=== PATIENT | male | born 1970 | race Caucasian/White ===

== ENCOUNTER 2022-09-16 16:49 | Emergency (ER) | payer OTHER ==
[2022-09-16] MEDS ORDERED: Ondansetron 4 MG/2 ML SDV IVPUSH ONE (17:08)
[2022-09-16] MEDS ORDERED: HYDROmorphone 1 MG/ML Syringe IVPUSH ONE ×2 (17:08→20:50)
[2022-09-16] MEDS ORDERED: ceFAZolin 1 GM in Sodium Chloride 0.9% 50 ML IV ONE (17:09)
[2022-09-16] MEDS ORDERED: Diphtheria,Pertussis(Acell),Tetanus Vaccine 0.5 ML Syringe IM ONE (17:09)
[2022-09-16] MEDS ORDERED: Lidocaine 1% 5 ML VIAL INJECT ONE (17:11)
[2022-09-16] MEDS ORDERED: Sodium Chloride 0.9% 1,000 ML IV ONE (17:23)
[2022-09-16 17:30] LABS: BASOPHILS PERCENT AUTO 0.2 % (0.0-1.5); EOSINOPHILS ABSOLUTE AUTO 0.1 K/uL (0.0-0.7); EOSINOPHILS PERCENT AUTO 1.2 % (0.0-7.0); HEMATOCRIT 42.6 % (38.0-50.0); HEMOGLOBIN 15.2 g/dL (13.0-17.0); LYMPHOCYTES ABSOLUTE AUTO 4.3 K/uL (0.6-2.4); LYMPHOCYTES PERCENT AUTO 45.3 % (16.0-40.0); MEAN CORPUSCULAR HEMOGLOBIN 30.2 pg (27.0-32.0); MEAN CORPUSCULAR HGB CONC 35.7 g/dL (31.0-37.0); MEAN CORPUSCULAR VOLUME 84.7 fL (80.0-98.0); MONOCYTES ABSOLUTE AUTO 0.8 K/uL (0.0-0.8); MONOCYTES PERCENT AUTO 8.8 % (0.0-15.0); NEUTROPHILS ABSOLUTE AUTO 4.3 K/uL (1.4-5.7); NEUTROPHILS PERCENT AUTO 44.5 % (48.0-80.0); PLATELET COUNT,PLT 330 K/uL (150-400); RED BLOOD CELL COUNT 5.03 M/uL (4.50-5.90); WHITE BLOOD CELL COUNT,WBC 9.55 K/uL (4.0-11.0)
[2022-09-16 17:54] LABS: A/G RATIO 1.3 (0.9-1.6); ALBUMIN 3.9 g/dL (3.4-5.0); BILIRUBIN TOTAL 0.9 mg/dL (0.2-1.0); CALCIUM 9.1 mg/dL (8.5-10.1); CARBON DIOXIDE,CO2 23.3 mmol/L (21.0-32.0); CREATININE 1.1 mg/dL (0.8-1.3); EST CRCL DRUG DOSING (CG) 91.8 mL/min; POTASSIUM,K 3.7 mmol/L (3.5-5.1)
== END 2022-09-16 21:45 ==
LOC: MW.ED 16:49
DX: S62.621B Displaced fracture of middle phalanx of left index finger, initial encounter for open fracture (principal); S62.611B Displaced fracture of proximal phalanx of left index finger, initial encounter for open fracture; F17.210 Nicotine dependence, cigarettes, uncomplicated; W31.2XXA Contact with powered woodworking and forming machines, initial encounter
CPT/HCPCS: 36415; 73130; 80053; 85025; 90715; 96365; 96375; 96376; 99285; J0690; J1170; J2405; J3490; J7030; 12002